=== PATIENT | female | born 1980 | race Two or more races ===

== ENCOUNTER 2024-10-01 05:53 | Emergency (ER) | payer MEDICAID, SELFPAY ==
[2024-10-01 05:55] VITALS: BMI 31.1
--- NOTE | 2024-10-01 06:17 | EDNOTE_ITS ---
<Statement entered by Gerri Brewster MD - 10/01/24 09:35> As co-signing physician, I was present and available for consult prn. I concur with the plan and care as documented by the midlevel provider. ED General RME/HPI General Chief complaint: General Adult/Misc Complain Stated complaint: BILAT EYES RED SWOLLEN AND ITCHY Time Seen by Provider: 10/01/24 06:12 Arrival date/time: 10/01/24 05:53 CC: Hives itching of the upper eyelids right side of the face and top of hands HPI ongoing for the past 2 days. Unknown source Patient denies shortness of breath difficulty breathing headache blurred vision seeing spots nausea vomiting diarrhea has been taking Benadryl without significant relief. Patient is awake alert oriented mild discomfort but not in any acute distress. Related Data Previous Rx's ?Medication ?Instructions ?Recorded famotidine 20 mg tablet 20 mg PO QDAY #20 tabs 10/01 prednisone 20 mg tablet See Taper PO BID 3 days #6 t abs 10/01/24 Allergies Allergy/AdvReac Type Severity Reaction Status Date / Time No Known Allergies Allergy Verified 10/01/24 05:58 Review of Systems Review of Systems Narrative Review of Systems: GEN: No fever, no chills, no weight loss EYES: No discharge, no visual changes, no pain HEENT: No ear pain, no congestion, no sore throat PULM: No shortness of breath, no cough, no congestion CV: No chest pain, no dyspnea on exertion, no palpitations GI: No nausea, no vomiting, no diarrhea, no pain, no constipation : No frequency, no urgency, no dysuria MUSC/SKEL: No joint pain, no back pain SKIN: Hives, no rash PSYCH: No hallucinations, no depression HEME/LYMPH: No easy bleeding or bruising tendencies NEURO: No weakness, no headache Past Medical History Social History SMOKING STATUS: Never smoker ED Exam Narrative Physical exam: [General: Not in any acute distress Head normocephalic HEENT: Eyes pupils are PERRLA EOMs are intact mouth pink moist membranes uvula is midline swallow symmetrical phonation is normal ears no otorrhea. All of the subsystems of HEENT are within acceptable limits Neck is supple nontender no JVD no edema Chest equal chest rise nontender to palpation Respiratory: Clear to auscultation no wheezes crackles or rubs CV: Rate rhythm is regular no murmurs rubs or clicks Abdomen is distended secondary to body habitus soft nontender no masses positive bowel sounds all 4 quadrants Back: No CVA tenderness no spinous process tenderness from cervical spine thoracic and lumbar spine Skin: Small irregular shaped irregular pattern of hives to the right side of the face upper eyelids, and 2 small areas on the dorsum of both hands. Otherwise skin is intact no petechiae rash induration ulceration or crepitus Extremities: Moving all extremity against resistance cap refill less than 2 seconds neurosensory intact Neuro: Awake alert oriented x3 Glascow coma 15 no focal deficits] Course Quality Measures none Orders Category Date Time Status Dexamethasone Inj [Decadron Inj] Med 10/01/24 06:17 Once 10 mg IM X1 ONE Discharge Plan Plan Patient Disposition: HOME (Self Care) Patient condition on transfer: Stable Prescriptions/Referrals Prescriptions/Med Rec: New famotidine 20 mg tablet 20 mg PO QDAY Qty: 20 0RF prednisone 20 mg tablet See Taper PO BID 3 Days Qty: 6 0RF Taper: Prednisone Taper 20 mg DAILY for 2 Days and 0 Hour 10 mg DAILY for 2 Days and 0 Hour 5 mg DAILY for 7 Days and 0 Hour Problem List Clinical Impression: Hives Patient/Caregiver Discharge Instructions Other Activity Instructions:: Take the medications as prescribed if there is a worsening of symptoms in spite of the medications return the emergency room medially for further evaluation. Education Materials: ED Hives (Adult) Print Language: Israeli Stand Alone Forms: Mila Award Info., Patient Portal Info Letter, Work/School Release PA/MANAGER HELPDESK Supervising Physician PA/MANAGER HELPDESK Supervising Physician: Jadiel Massey ENP [facility] Clinical Information Provided by patient Medical Records Reviewed [facility] Meds/Rx Considered, not Ordered None Labs/Rad/Tests considered, not Ordered None Chronic Illness/Social Conditions which may negatively complicate care or outcome(s)-explain: None or not applicable EKG EKG not done Lab Interpretation Labs: none Imaging Imaging interpretation: none Radiology reports / interpretation(s): Unknown origin of the insidious onset patient will be discharged with prednisone and famotidine to continue on Benadryl. Diagnosis Differential diagnosis: Urticaria hives angioedema Dispositon Disposition: Discharge Home
[2024-10-01 06:25] VITALS: BP 116/78; PULSE 68; RESP 16; TEMP 36.9; O2SAT 99
[2024-10-01] MEDS: DEXAMETHASONE SOD PHOS INJ 10 MG/ML VIAL IM (06:25)
== END 2024-10-01 06:30 | disposition home or self-care (01) ==
LOC: SERX 07:29
PROVIDERS: Emergency Provider Emergency Medicine; PCP Family Medicine
DX: L50.9 Urticaria, unspecified (principal)
CPT/HCPCS: 96372; 99282; J1100

== ENCOUNTER 2024-10-06 11:22 | Emergency (ER) | payer MEDICAID, SELFPAY ==
[2024-10-06 11:23] VITALS: BMI 25.4
[2024-10-06 11:33] VITALS: BP 123/83; PULSE 73; RESP 18; TEMP 37; O2SAT 99
--- NOTE | 2024-10-06 11:35 | XR_ITS ---
Examination: CT brain head without contrast. 2-D sagittal coronal reconstructions Date and time of exam:October 06, 2024 1232 hours INDICATIONS: Right-sided headaches and dizziness beginning 3 days ago CTDI: vol (mGy):48.8 DLP: (mGycm):972 Technique: Multiple CT axial sections of the brain have been obtained, 5 mm slice thickness. Contrast has not been administered. 2-D sagittal, coronal reconstructions have been obtained Low dose protocols were performed. One or more of the following dose reduction techniques were used; automated exposure control, adjustment of the mA and/or KV according to patient size, use of iterative reconstruction technique. Findings: No significant ventricular enlargement. Intra-axial or extra-axial hemorrhage density is not seen. No mass effect or midline shift Basal cisterns are not remarkable. Fourth ventricle is midline. Cranial vault intact. Impression: Negative for acute hemorrhage, mass effect or midline shift Advise clinical correlation follow-up accordingly
--- NOTE | 2024-10-06 11:35 | EKG_ITS ---
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
--- NOTE | 2024-10-06 11:36 | PD.EDRME ---
Rapid Medical Screening Exam RME Arrival date/time: 10/06/24 11:22 44-year-old female presents to the emergency department for complaints of facial swelling headache and dizziness Chief Complaint: Eye Problems Time Seen by Provider: 10/06/24 11:30 Vital signs: Vital Signs Temperature 98.6 F 10/06/24 11:33 Pulse Rate 73 10/06/24 11:33 Respiratory Rate 18 10/06/24 11:33 Blood Pressure 123/83 10/06/24 11:33 Pulse Oximetry (%) 99 10/06/24 11:33 Oxygen Delivery Method Room Air 10/06/24 11:33
[2024-10-06] MEDS: DEXAMETHASONE SOD PHOS INJ 10 MG/ML VIAL IM (11:41)
[2024-10-06 11:59] LABS: Basophils # (Auto) 0.0 Thou/mm3 (0.0-0.2); Basophils % (Auto) 0 % (0-2.5); Eosinophils # (Auto) 0.4 Thou/mm3 (0.0-0.5); Eosinophils % (Auto) 5 % (0-10); Hematocrit 38.5 % (36.0-46.0); Hemoglobin 12.2 g/dL (12.0-16.0); Immature Granulocytes Auto 0.02 Thou/mm3 (0.00-0.00); Lymphocytes # (Auto) 1.6 Thou/mm3 (1.0-4.8); Lymphocytes % (Auto) 22 % (10-50); Mean Corpuscular HGB Conc 31.7 g/dl (31.0-37.0); Mean Corpuscular Hemoglobin 25.6 pg (25.0-35.0); Mean Corpuscular Volume 81 fL (80-100); Monocytes # (Auto) 0.4 Thou/mm3 (0.0-0.8); Monocytes % (Auto) 5 % (0-12); Neutrophils # (Auto) 4.8 Thou/mm3 (1.8-7.7); Neutrophils % (Auto) 67 % (37-80); Nucleated Red Blood Cell # 0.00 Thou/mm3 (0.00-0.00); Nucleated Red Blood Cell % 0 /100 WBC (0); Platelet Count 315 Thou/mm3 (140-440); RDW Standard Deviation 53.2 fL (36.4-46.3); Red Blood Count 4.77 Miln/mm3 (4.00-5.20); White Blood Count 7.1 Thou/mm3 (3.6-11.0)
[2024-10-06 12:12] LABS: Alanine Aminotransferase 39 U/L (10-49); Albumin, Serum 4.3 gm/dL (3.5-5.0); Albumin/Globulin Ratio 1.5 (1.2-2.2); Alkaline Phosphatase 71 U/L (46-116); Anion Gap 8 (7-16); Aspartate Amino Transferase 24 U/L (0-34); BUN/Creatinine Ratio 13 Ratio (12-20); Bilirubin,Total 0.6 mg/dL (0.3-1.2); Blood Urea Nitrogen 8 mg/dL (9-23); Calcium 8.7 mg/dL (8.3-10.6); Calcium (Corrected) 8.7 mg/dL (8.5-10.1); Carbon Dioxide 26.8 mMol/L (20.0-31.0); Chloride 104 mMol/L (98-107); Creatinine (Component) 0.6 mg/dL (0.6-1.3); Estimated Creatinine Clearance 101.5 mL/min (>60); Globulin 2.8 gm/dL (2.3-3.5); Glucose 97 mg/dL (74-106); Osmolality,Calculated 275 (275-295); Potassium 3.8 mMol/L (3.4-5.1); Sodium 139 mMol/L (136-145); Total Protein 7.1 gm/dL (5.7-8.2); Troponin I < 0.002 ng/mL (0.0-0.045); eGFR > 60 See Note
[2024-10-06 12:31] LABS: HCG,Qualitative Serum Negative
--- NOTE | 2024-10-06 14:34 | PD.EDSKIN ---
ED Skin Abcess FB-RME/HPI General Chief complaint: Eye Problems Stated complaint: EYES ARE SWOLLEN Time Seen by Provider: 10/06/24 11:30 Arrival date/time: 10/06/24 11:22 44-year-old female presents to the emergency department for complaints of facial swelling headache and dizziness patient reports allergic reaction Limitations: no limitations RME / HPI RME / HPI narrative: 10/06/24 11:22 44-year-old female presents to the emergency department for complaints of facial swelling headache and dizziness Related Data Previous Rx's ?Medication ?Instructions ?Recorded famotidine 20 mg tablet 20 mg PO QDAY #20 tabs 10/01/24 diphenhydramine HCl 25 mg capsule 25 mg PO Q8H PRN allergic symptoms 10/06/24 (Benadryl) #30 caps Allergies Allergy/AdvReac Type Severity Reaction Status Date / Time No Known Allergies Allergy Verified 10/06/24 11:28 Review of Systems Review of Systems Systems Reviewed: All systems reviewed, normal except as documented Constitutional Constitutional: Reports system reviewed and no additional complaints, except as documented, Denies fever(s) and Denies headache(s) Eyes Eyes: Reports system reviewed and no additional complaints, except as documented, Denies blurry vision and Reports other (Facial swelling) ENT Ears, Nose, Mouth, and Throat: Reports system reviewed and no additional complaints, except as documented, Denies headache(s), Denies nasal congestion and Denies nasal discharge Cardiovascular Cardiovascular: Reports system reviewed and no additional complaints, except as documented, Denies chest pain and Denies dyspnea Respiratory Respiratory: Reports system reviewed and no additional complaints, except as documented, Denies chest congestion, Denies cough and Denies dyspnea Gastrointestinal Gastrointestinal: Reports system reviewed and no additional complaints, except as documented and Denies abdominal pain Integumentary/Breasts Skin/Breast: Reports system reviewed and no additional complaints, except as documented and Denies rash Neurologic Neurologic: Reports system reviewed and no additional complaints, except as documented, Reports as per HPI and Denies headache(s) Past Medical History Social History SMOKING STATUS: Never smoker ED Exam General Limitations: Present no limitations General appearance: Present alert and in no apparent distress Head Head exam: Present atraumatic Eye Eye exam: Present normal appearance, PERRL and EOMI ENT ENT exam: Present normal exam, normal oropharynx and mucous membranes moist Neck Neck exam: Present normal inspection, full ROM and trachea midline Chest Chest inspection: Present normal inspection and symmetric chest wall rise Respiratory Respiratory exam: Present normal lung sounds bilaterally Cardiovascular Cardiovascular exam: Present regular rate, normal rhythm and normal heart sounds Abdominal Exam Abdominal exam: Present soft and normal bowel sounds Extremities Exam Extremities exam: Present normal inspection and full ROM Back Exam Back exam: Present normal inspection and full ROM Neurological Exam Neurological exam: Present alert, oriented X3, CN II-XII intact, normal gait and reflexes normal; Absent motor sensory deficit Psychiatric Psychiatric exam: Present normal affect and normal mood Skin Skin exam: Present warm, dry and other (Mild facial swelling, rash to abdomen and back consistent with urticaria) Course Quality Measures none Orders Category Date Time Status EKG (ED ONLY) *Do not use* NOW Care 10/06/24 11:[address] head/brain wo con Stat Exams 10/06/24 11:35 Completed EKG (ED Only) Stat Exams 10/06/24 11:35 Draft CBC Stat Lab 10/06/24 11:47 Completed Comprehensive Metabolic Panel Stat Lab 10/06/24 11:47 Completed HCG,Qualitative Serum Stat Lab 10/06/24 11:47 Completed Troponin I Stat Lab 10/06/24 11:47 Completed Dexamethasone Inj [Decadron Inj] Med 10/06/24 11:35 Discontinued 10 mg IM X1 ONE DiphenhydrAMINE [Benadryl] Med 10/06/24 11:35 Discontinued 50 mg PO X1 ONE Vital Signs Vital signs: Vital Signs Temperature 98.6 F 10/06/24 11:33 Pulse Rate 73 10/06/24 11:33 Respiratory Rate 18 10/06/24 11:33 Blood Pressure 123/83 10/06/24 11:33 Pulse Oximetry (%) 99 10/06/24 11:33 Oxygen Delivery Method Room Air 10/06/24 11:33 O2 saturation 99% room air with normal limits PROCEDURES: EKG Interpretation #1: Date of EK10/13/24 Time of EK:37 Rate: 67 Interpretation: Interpreted by me EKG Impression: Normal sinus rhythm, No acute ST-T changes, No ectopy, No ischemic changes, Normal QRS, Normal intervals and Normal axis Skin / Abscess / Foreign Body MDM Narrative MDM Narrative:: 44-year-old female presents to the emergency department for complaints of facial swelling headache and dizziness patient reports allergic reaction On exam patient has mild swelling to her face and around both eyes consistent with allergic reaction Patient given Benadryl dexamethasone which improved symptoms significantly As patient reports dizziness and headache imaging lab work and EKG obtained as well no acute emergent findings are noted Patient discharged home in no distress to follow-up with primary care doctor in the next 24 to 48 hours and for any worsening symptoms to return to the ER immediately Patient data External records reviewed:: [facility] previous records Clinical information provided by:: patient Social determinants that could affect healthcare access:: none Patient has the following chronic illnesses:: None How is presenting disease/condition affected by chronic disease/condition?: no chronic disease Evaluation data The following diagnostics were reviewed and interpreted by me:: lab results, radiology exam(s) and EKG tracing(s) Lab and/or radiology exams considered but not ordered:: Labs, radiology, EKG obtained Interpretation Summary: Reviewed by me Medications / Prescriptions Medications or Prescriptions considered but not ordered:: Given Medication administrations:: Medication Administration History Discontinued Medications Dexamethasone Sodium Phosphate (Dexamethasone Sod Phos Inj 10 Mg/Ml Vial) 10 mg IM X1 ONE Stop: 10/06/24 11:36 Last Admin: 10/06/24 11:41 Dose: 10 mg Documented By: VERONICA Diphenhydramine HCl (Diphenhydramine 25 Mg Capsule) 50 mg PO X1 ONE Stop: 10/06/24 11:36 Last Admin: 10/06/24 11:40 Dose: 50 mg Documented By: VERONICA Given Consultations Consultation(s) initiated? (list below): No Diagnosis Skin/Abscess Differential Diagnosis: other (Allergic reaction headache, dizziness, autoimmune disorder) Most likely diagnosis given after review of the tests above:: Allergic reaction Admission Indicated Admission indicated?: not indicated Admission Request Was there a request for admission?: No Disposition Plan Disposition Plan: Discharge Discharge Attestation Discharge Attestation: The patient and all family members were given an opportunity to ask questions and understood the discharge instructions. Discharge instructions specifically effects, indications for sooner follow up or return to the emergency department, and the expected course of current diagnosis. Patient condition: Stable Discharge Plan Plan Patient Disposition: HOME (Self Care) Discharge Disposition comment: Stable Prescriptions/Referrals Prescriptions/Med Rec: New diphenhydramine HCl [Benadryl] 25 mg capsule 25 mg PO Q8H PRN (Reason: allergic symptoms) Qty: 30 0RF No Action famotidine 20 mg tablet 20 mg PO QDAY Qty: 20 0RF Referrals: Elba Lema MD [Primary Care Provider] - 10/07/24 Problem List Clinical Impression: Rash Patient/Caregiver Discharge Instructions Additional Instructions: Please follow up with your primary care doctor in the next 24-48hrs for any worsening symptoms return here immediately Take your medication as prescribed Print Language: Lebanese Stand Alone Forms: Mila Award Info., Patient Portal Info Letter PA/GAS COMPRESSOR OPERATOR Supervising Physician PA/BRUCE Supervising Physician: dr simon
== END 2024-10-06 14:41 | disposition home or self-care (01) ==
PROVIDERS: Nurse Practitioner Primary Care; Emergency Provider Family Medicine; PCP Obstetrics & Gynecology
DX: R21 Rash and other nonspecific skin eruption (principal); R51.9 Headache, unspecified; R42 Dizziness and giddiness; R22.0 Localized swelling, mass and lump, head
CPT/HCPCS: 36415; 70450; 80053; 84484; 84703; 85025; 93005; 99283; J1100; A9270